=== PATIENT | female | born 1965 | race Caucasian/White ===

== ENCOUNTER 2018-04-21 16:55 | Outpatient (REF) | payer BC, SELFPAY ==
[2018-04-21 21:20] LABS: Abs Immature Grans 0.02 k/cumm (0.0-0.09); Absolute Basophil Count 0.06 k/cumm (0.0-0.2); Absolute Eosinophil Count 0.15 k/cumm (0.0-0.7); Absolute Lymphocyte Count 2.97 k/cumm (1.2-3.4); Absolute Monocyte Count 0.92 k/cumm (0.11-0.7); Absolute Neutrophil Count 4.96 k/cumm (1.2-6.7); Basophils % 0.7; Eosinophils % 1.7; HCT 40.3 % (36.0-46.0); HGB 13.7 g/dL (12.0-15.5); Immature Grans % 0.2; Lymphocytes % 32.7; Mean Corpuscular Hemoglobin 31.1 pg (27.0-33.0); Mean Corpuscular Volume 91.6 fL (80-95); Monocytes % 10.1; Neutrophils % 54.6; Platelet Count 248 x1000/uL (130-400); RBC Distribution Width 13.7 % (11.7-14.6); White Blood Cell Count 9.08 k/cumm (4.4-10.8)
[2018-04-25 17:28] LABS: Bartonella Henselae IgG <1:128 titer (<1:128); Bartonella Henselae IgM <1:20 titer (<1:20); Bartonella Quintana IgG <1:128 titer (<1:128); Bartonella Quintana IgM <1:20 titer (<1:20)
== END 2018-04-21 17:15 ==
LOC: NCHCN 16:55
PROVIDERS: PCP Nurse Practitioner Family; Visit Provider Nurse Practitioner Family
DX: R59.0 Localized enlarged lymph nodes (principal)
CPT/HCPCS: 85025; 86611

== ENCOUNTER 2018-04-25 16:27 | Outpatient (REF) | payer BC, SELFPAY ==
--- NOTE | 2018-04-25 15:40 | PAPFT_PTH ---
PATIENT: Marya Escalera LOC: [facility] U#:[id number] AGE/SX: 53/F ROOM: RE04/25/[address]: Ibis Humphrey : 1965 BED: DIS: 04/25/2018 SPEC #: [id number] RECD: 04/26/18 12:50 STATUS: PEREZ REEffie #: [id number] SANDRA: 04/25/18 15:[address]: Ibis Humphrey DEPT: [facility] Cytology RECD BY: Carol Chun Tissues: 1 - CX/ENDOCX FOR PAP SMEARS Procedures: PAP THIN PREP/UVM Screening HPV DNA PROBE Comments: [id number]
== END 2018-04-25 16:47 ==
LOC: NCHCN 16:27
PROVIDERS: PCP Nurse Practitioner Family; Visit Provider Nurse Practitioner Family
DX: N89.8 Other specified noninflammatory disorders of vagina (principal); Z12.4 Encounter for screening for malignant neoplasm of cervix; Z11.51 Encounter for screening for human papillomavirus (HPV); Z00.00 Encounter for general adult medical examination without abnormal findings; Z01.419 Encounter for gynecological examination (general) (routine) without abnormal findings
CPT/HCPCS: 88142; 87086; 87480; 87510; 87624; 87660

== ENCOUNTER 2018-05-04 10:00 | Day surgery (SDC) | payer BC, SELFPAY ==
--- NOTE | 2018-05-04 07:09 | ROE_ITS ---
Date of service: 05/04/18 Time of Service: 12:10 Operative Note DATE OF PROCEDURE: 05/04/18 PRE-OP DIAGNOSIS: Inguinal Lymphadenopathy POST-OP DIAGNOSIS: same PROCEDURE: Excisional bx of inguinal lymph node and aerobic and anaerobic cultures SURGEON: Jazmin Iniguez ANESTHESIA: local (2% Lidocaine mixed with 0.5% Marcaine with epi) ESTIMATED BLOOD LOSS: 5 PATHOLOGY: other (lymph node, cultures) COMPLICATIONS: None Patient was transported to: same day Patient's condition: stable Indications: Mrs. Escalera is a pleasant 53 year old female with a history of cervical Cancer who has noted right sided lymphadenopathy in her groin. No infections that she is aware of. The area is tender top palpation. Risks, benefits, complications were reviewed with her and she wished to proceed. No guarantees were given or implied Findings: Several enlarged lymph nodes in the right inguinal area. 2 cm lymph node removed. There was also some white material around the lymph node as I was dissecting it. Question infection and therefore cultures were done Procedure Description: After informed consent was obtained patient was taken to the operating room placed in a supine position on the operating room table. Monitors were applied and a blood pressure was done. Her right groin was then prepped and draped in a sterile surgical fashion and a timeout was done. The patient's name, date of , procedure type and site, allergies to medications, DVT prophylaxis and antibiotic prophylaxis were reviewed. Next the local anesthetic was injected into the dermis and subcutaneous tissue around the palpable lymph node. Once the skin was numb a 2-1/2 cm incision was made. Dissection was done with cautery with a needle tip through the subcutaneous tissue until the lymph node was identified. Hemostats and cautery were then used to gently dissect around the lymph node. As I was dissecting with the hemo stat some white material was noted right next to the lymph node. I did not know if this was a pocket of infection or if this was coming from the lymph node itself so cultures were done. Both anaerobic and aerobic cultures. Once the lymph node was completely dissected it was removed and placed in formalin and sent to the pathologist. The wound was then irrigated. Small areas of bleeding was stopped using cautery. The subcutaneous tissue was then re-approximated with 3-0 Vicryl. The dermis was re-approximated with a running 4-0 Vicryl suture. The skin was then cleaned and dried and skin affix was applied. Sponge instrument and needle counts were correct at the end of the case. The patient tolerated the procedure well and she was taken to same day surgery in stable condition.
--- NOTE | 2018-05-04 07:09 | W.PM.DSUDISC ---
Discharge Plan Disposition Patient Disposition: HOME Condition: Good Discharge Details Reason For Visit: inguinal lymphadenopathy Attending Provider: Jazmin Iniguez Primary Care Provider: Ibis Humphrey Home Meds and New Rx's Prescriptions: New acetaminophen [Tylenol Arthritis Pain] 650 mg tablet extended release 650 mg PO Q6H PRN PRN (Reason: pain) Qty: 30 RF: 0 ibuprofen 600 mg tablet 600 mg PO QID PRN (Reason: pain) Qty: 30 RF: 0 Continued doxycycline hyclate 100 MG tablet 100 mg PO BID Qty: 28 RF: 0 Discharge Instructions Instructions: Care For Your Absorbable Stitches (DC) Additional Instructions: Activity at Home after surgery: 1. Make sure you walk outside at least 4 times per day 2. You should be able to climb a flight of stairs 3. No driving while in pain or taking pain medications 4. No strenuous activity for 2 weeks Diet, Nutrition, & wound healing: regular diet Pain Medications: 1. Alternate Tylenol 650 mg and Ibuprofen 600 mg every 3 hours 2. If a narcotic has been prescribed take as directed only for breakthrough pain For Constipation: 1. Take Milk of Magnesia or MiraLax as needed for constipation Other: 1. You may shower daily. Do not scrub the incisions 2. Do not soak the incisions for 1 week 3. You may alternate ice and heat as needed for pain and swelling Wound Care: 1. Keep the incisions clean and dry Please call our office if you develop: 1. Fevers >101.5 2. Nausea or Vomiting 3. Worsening pain 4. Redness and thick discharge from the wounds If after hours please call the Hospital at and ask to speak to the on-call surgeon Referrals: Jazmin Iniguez MD [ [facility] STAFF PHYSICIAN] - 05/17/18 1:45 pm Activity:: Activity as Tolerated Diet:: As Tolerated Discharge Orders Discharge Orders: Discharge Order (Routine); Ordered 05/04/18 Ordered By: Jazmin Iniguez DS: Diagnosis Discharge Diagnosis (1) Inguinal lymphadenopathy: Status: Acute
[2018-05-04 10:11] VITALS: BP 124/76; PULSE 65; RESP 16; TEMP 35.5; O2SAT 100
[2018-05-04] MEDS: Lactated Ringers 1,000 ML 80 ML IV (10:38)
[2018-05-04] MEDS: Lidocaine 2% Multi-Dose 50 ML VIAL (11:39)
--- NOTE | 2018-05-04 11:45 | LYM_PTH ---
PATIENT: Marya Escalera LOC: [facility] U#:[id number] AGE/SX: 53/F ROOM: RE05/04/[address]: Jazmin Iniguez MD : 1965 BED: DIS: 05/04/2018 SPEC #: [id number] RECD: 05/04/18 12:48 STATUS: PEREZ REQ #: [id number] SANDRA: 05/04/18 11:[address]: Jazmin Iniguez DEPT: Surgical Specimen RECD BY: Carol Chun ENTERED: 05/04/18 12:50 SP TYPE: LYM OTHR DR: Ibis Humphrey Tissues: 1 - LYMPH NODE BIOPSY Procedures: GROSS AND MICRO LEVEL 4 IMMUNOPEROXIDASE STAIN SPECIAL STAIN 1 Comments: [id number]
--- NOTE | 2018-05-07 15:01 | W.PM.PROGNOT ---
Date of Service Date of service: 05/07/18 Time of Service: 15:07 Assessment and Plan (1) Inguinal lymphadenopathy: Start date: 05/07/18 Start time: 15:10 Current visit: No Status: Acute sp lymph excision reviewed her op note, micro and path she is concerned about the wound and the cause of this i spoke to her in length about this and that we nnd to wait fo the final on the path i also made verena she had the corect expectations and that this wound could open up and drain sh understood and will fu on wednesday with theoffice (2) Lymph nodes enlarged: Current visit: No Status: Acute (3) S/P lymph node biopsy: Current visit: No Status: Acute Subjective Interval history since last seen: wound getting distend and firm, pt say it seem like it may drain Objective Objective Clinical Data: Vital Signs Temperature 35.5 C L 05/04/18 10:11 Pulse 65 05/04/18 10:11 Pulse Rhythm Regular 05/04/18 10:11 Respiratory Rate 16 05/04/18 10:11 Respiratory Depth Normal 05/04/18 10:11 Blood Pressure 124/76 05/04/18 10:11 Pulse Oximetry 100 05/04/18 10:11 Oxygen Delivery Method Room Air 05/04/18 10:11 Oxygen Flow Rate 0 05/04/18 10:11 Pain Level 0 05/04/18 10:11
[2018-05-24 10:11] LABS: Bartonella PCR Negative; Specimen source SEE COMMENTS
== END 2018-05-04 12:45 | disposition home or self-care (01) ==
LOC: SUR 10:00
PROVIDERS: PCP Nurse Practitioner Family; Visit Provider Surgery
PROC: (CPT 38500; principal; 2018-05-04 10:45)
DX: I88.8 Other nonspecific lymphadenitis (principal); Z85.41 Personal history of malignant neoplasm of cervix uteri
CPT/HCPCS: 38531; 87077; 88305; 99231; 87070; 87075; 87205; 87798; 88312; 88361; J0690

== ENCOUNTER 2018-09-16 07:27 | Outpatient (CLI) | payer BC, SELFPAY ==
[2018-09-16 08:32] LABS: Cholesterol 204 mg/dL (50-200); Glucose 91 mg/dL (70-100); HDL Cholesterol 90 mg/dL (40-60)
[2018-09-16 08:43] LABS: Triglyceride < 25 mg/dL (30-150)
[2018-09-16 08:56] LABS: LDL CHOLESTEROL 100 mg/dL (<100)
== END 2018-09-16 07:47 ==
PROVIDERS: PCP Nurse Practitioner Adult Health; Visit Provider Nurse Practitioner Family
DX: Z13.220 Encounter for screening for lipoid disorders (principal); Z13.1 Encounter for screening for diabetes mellitus
CPT/HCPCS: 36415; 80061; 82947; 83721

== ENCOUNTER 2018-10-07 01:20 | Outpatient (CLI) | payer BC, SELFPAY ==
--- NOTE | 2018-10-07 15:30 | DI.MAMMO_ITS ---
SYMPTOMS/DIAGNOSIS: SCREENING, Z12.31 MAMMOGRAM: Mammograms were interpreted according to the usual protocol including computer analysis with CAD system, tomosynthesis and C view imaging. The breasts are heterogeneously dense. No dominant mass or clumped microcalcification is identified in either breast. Current examination is compared with the previous examinations including August 2017 and there is a question of increased prominence of retroareolar soft tissue seen on MLO view of the left breast, new mass not excluded. Additional mammographic views are requested to include MLO and CC spot compression views of the retroareolar portion of the left breast. Breast ultrasound recommended as well. CONCLUSION: Additional mammographic views of the left breast requested as described above, along with left breast ultrasound. Category 0, breast density category C. MQSA ASSESSMENT OF FINDINGS: Incomplete: Needs additional imaging evaluation. Category 0. Patient will receive a letter notifying them of these results. Bi-RADS category C. The breasts are heterogeneously dense, which may obscure small masses.
== END 2018-10-07 01:40 ==
PROVIDERS: PCP Nurse Practitioner Adult Health; Visit Provider Nurse Practitioner Family
DX: Z12.31 Encounter for screening mammogram for malignant neoplasm of breast (principal); R92.8 Other abnormal and inconclusive findings on diagnostic imaging of breast
CPT/HCPCS: 77063; 77067

== ENCOUNTER 2018-10-11 00:58 | Outpatient (CLI) | payer BC, SELFPAY ==
--- NOTE | 2018-10-11 14:03 | DI.COMBO_ITS ---
SYMPTOMS/DIAGNOSIS: F/U ABNORMAL MAMMO, ? INCREASED PROMINENCE OF RETROAREOLAR SOFT TISSUE SEEN OF LT BREAST, NEW MASS NOT EXCLUDED; RIGHT BREAST LUMP, N63.10 ADDITIONAL VIEW OF THE LEFT BREAST AND LEFT BREAST ULTRASOUND: Additional images are interpreted according to the usual protocol including tomosynthesis and 2D imaging. Comparison is made with mammograms from 2010 through 2018. An MLO spot compression view with tomography was performed for a questioned area of nodularity. There has been no change when compared with previous exams. Dense breast tissue is seen. Left breast ultrasound shows no evidence of a cyst or mass. There is dense tissue seen in the upper outer quadrant. IMPRESSION: Category 1, negative mammogram and left breast ultrasound. The mammographic findings are consistent with islands of dense breast tissue. Yearly screening mammography is recommended. ULTRASOUND OF THE RIGHT AXILLA: There is a 2.9 x 0.5 x 2.2 cm smoothly marginated, mildly hypoechoic nodule in the right axilla. The findings are consistent with a lipoma. An additional lipoma is seen measuring 4.3 x 0.8 x 3.2 cm in the mid to superior axilla. No enlarged lymph nodes are identified. 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 SA ASSESSMENT OF FINDINGS: Negative. Category 1. Patient will receive a letter notifying them of these results. Bi-RADS category C. The breasts are heterogeneously dense, which may obscure small masses.
== END 2018-10-11 01:18 ==
PROVIDERS: PCP Nurse Practitioner Adult Health; Visit Provider Nurse Practitioner Family
DX: Z12.31 Encounter for screening mammogram for malignant neoplasm of breast (principal); R92.8 Other abnormal and inconclusive findings on diagnostic imaging of breast; D17.22 Benign lipomatous neoplasm of skin and subcutaneous tissue of left arm; N60.82 Other benign mammary dysplasias of left breast
CPT/HCPCS: 76642; 77063; 77067

== ENCOUNTER 2019-09-18 11:18 | Outpatient (REF) | payer BC, SELFPAY ==
--- NOTE | 2019-09-15 | PAPFT_PTH ---
PATIENT: Marya Escalera LOC: [facility] U#:[id number] AGE/SX: 54/F ROOM: RE09/18/[address]: GINNY Morel : 1965 BED: DIS: 09/18/2019 SPEC #: [id number] RECD: 09/18/19 12:33 STATUS: PEREZ REEffie #: [id number] ASNDRA: 09/15/19 00:[address]: Ashly Varner DEPT: [facility] Cytology RECD BY: Carol Chun ENTERED: 09/18/19 12:33 SP TYPE: PAPFT DELMY DR: Ana Rosa Elizondo APRN Tissues: 1 - CX/ENDOCX FOR PAP SMEARS Procedures: PAP THIN PREP/UVM Screening HPV DNA PROBE Comments: [id number]
== END 2019-09-18 11:38 ==
LOC: LBN 11:18
PROVIDERS: PCP Nurse Practitioner Adult Health; Visit Provider Nurse Practitioner Family
DX: Z12.4 Encounter for screening for malignant neoplasm of cervix (principal); Z11.51 Encounter for screening for human papillomavirus (HPV)
CPT/HCPCS: 88142; 87624

== ENCOUNTER 2019-10-13 00:30 | Outpatient (CLI) | payer BC, SELFPAY ==
--- NOTE | 2019-10-13 12:09 | DI.MAMMO_ITS ---
EXAM: MG MAMMO SCREENING CLINICAL HISTORY: screening TECHNIQUE: Bilateral full field digital CC and MLO mammographic images were obtained with 3D tomosyn thesis and utilizing computer aided detection (CAD). COMPARISON: Available for comparison. FINDINGS: Masses/Architectural Distortion: None seen. Microcalcifications: No suspicious pleomorphic-type are seen. Skin Thickening/Nipple Retraction: None. IMPRESSION: 1. No significant interval change with no specific features of malignancy noted. 2. Unless there is more urgent need, screening mammography is recommended, as per [employer] guidelines. BI-RADS Category 1 - Negative Breast Density - Category C - Heterogeneously dense The mammogram demonstrates the patient's breast tissue is dense. Dense breast tissue is very common a nd is not abnormal but dense breast tissue can make it harder to find cancer on a mammogram. Also, de nse breast tissue may increase their breast cancer risk. This information about the result of the [facility] mogram report was provided to the patient to raise their awareness. Use this report when you speak wi th the patient about their risks for breast cancer, which includes their family history. At that time , you may recommend for more screening tests (Ultrasound or MRI) as they might be useful based on the ir risk. A negative radiographic report should not delay biopsy if a dominant or clinically suspicious mass is present. Up to ten percent of cancers are not identified on mammography. A negative report may reinforce clinical impression. Adenosis and dense breasts may obscure an underlying neoplasm. False positive reports average 6 to 10%. Patient will receive a letter notifying them of these results.
== END 2019-10-13 00:50 ==
PROVIDERS: PCP Nurse Practitioner Adult Health; Visit Provider Nurse Practitioner Family
DX: Z12.31 Encounter for screening mammogram for malignant neoplasm of breast (principal)
CPT/HCPCS: 77063; 77067

== ENCOUNTER 2020-11-06 18:24 | Outpatient (REF) | payer BC, SELFPAY ==
--- NOTE | 2020-11-06 18:30 | PAPFT_PTH ---
PATIENT: Marya Escalera LOC: [facility] U#:[id number] AGE/SX: 55/F ROOM: RE11/06/[address]: Ana Rosa Elizondo APRN : 1965 BED: DIS: 11/06/2020 SPEC #: [id number] RECD: 11/07/20 12:58 STATUS: PEREZ REQ #: [id number] SANDRA: 11/06/20 18:[address]: Ana Rosa Elizondo DEPT: [facility] Cytology RECD BY: Carol Chun Tissues: 1 - CX/ENDOCX FOR PAP SMEARS Procedures: PAP THIN PREP/UVM Screening HPV DNA PROBE Comments: [id number]
== END 2020-11-06 18:25 | disposition home or self-care (01) ==
LOC: LBN 18:24
PROVIDERS: PCP Nurse Practitioner Adult Health; Visit Provider Nurse Practitioner Adult Health
DX: Z12.4 Encounter for screening for malignant neoplasm of cervix (principal); Z11.51 Encounter for screening for human papillomavirus (HPV); Z87.410 Personal history of cervical dysplasia
CPT/HCPCS: 88142; 87624

== ENCOUNTER 2020-12-05 01:50 | Outpatient (CLI) | payer BC, SELFPAY ==
--- NOTE | 2020-12-05 08:24 | DI.MAMMO_ITS ---
Exam(s) MAMMO SCREENING EXAM: MAMMO SCREENING CLINICAL HISTORY: screening, Z12.39. TECHNIQUE: Bilateral full field digital CC and MLO mammographic images were obtained with 3D tomosyn thesis and utilizing computer aided detection (CAD). COMPARISON: Prior mammograms dating back to 2011, the most recent being October 2019.. FINDINGS: Fibroglandular tissue is again noted be moderately dense, this somewhat decreasing the sensitivity th e mammogram for finding hidden underlying lesions. There are no CAD designations. There are no new obvious masses nor malignant appearing microcalcification groups. There is no significant architectural distortion nor skin thickening-retraction. IMPRESSION: Moderately dense fibroglandular tissue. No obvious radiographic evidence of malignancy nor significa nt change compared to prior studies listed above. BI-RADS Category 1 - Negative Breast Density - Category C - Heterogeneously dense Breast density Category C or D implies that the patient has dense breast tissue. Dense breast tissue can make it harder to find cancer on a mammogram. Dense breast tissue is also associated with an incr eased risk of breast cancer. This information about the result of the mammogram report was provided to the patient to raise their awareness. Use this report when you speak with the patient about their risks for breast cancer, which includes their family history. At that time, you may recommend additional screening tests (Ultrasoun d or MRI) as these tests may add significant information. A negative radiographic report should not delay biopsy if a dominant or clinically suspicious mass is present. Up to ten percent of cancers are not identified on mammography. A negative report may reinforce clinical impression. Adenosis and dense breasts may obscure an underlying neoplasm. False positive reports average 6 to 10%. Patient will receive a letter notifying them of these results.
== END 2020-12-05 02:10 ==
PROVIDERS: PCP Nurse Practitioner Adult Health; Visit Provider Nurse Practitioner Adult Health
DX: Z12.31 Encounter for screening mammogram for malignant neoplasm of breast (principal)
CPT/HCPCS: 77063; 77067

== ENCOUNTER 2020-12-05 03:40 | Outpatient (CLI) | payer BC, SELFPAY ==
[2020-12-05 09:30] LABS: Anion Gap 11.7 mmol/L (3-11); BUN 21 mg/dL (7-18); CO2 26.3 mmol/L (21.0-32.0); CREATININE 0.8 mg/dL (0.55-1.02); Calcium 9.3 mg/dL (8.5-10.1); Calculated LDL 134 mg/dL (<100); Chloride 105 mmol/L (98-107); Cholesterol 234 mg/dL (<200); Glucose 83 mg/dL (74-106); HDL Cholesterol 94 mg/dL (40-60); Potassium 4.5 mmol/L (3.5-5.1); Sodium 143 mmol/L (136-145); Triglyceride 34 mg/dL (<150)
[2020-12-06 11:32] LABS: Hepatitis C Ab w Rflx HCV PCR Negative (Negative)
== END 2020-12-05 03:41 | disposition home or self-care (01) ==
LOC: LBO 03:40
PROVIDERS: PCP Nurse Practitioner Adult Health; Visit Provider Nurse Practitioner Adult Health
DX: Z13.220 Encounter for screening for lipoid disorders (principal); Z13.1 Encounter for screening for diabetes mellitus; Z11.59 Encounter for screening for other viral diseases
CPT/HCPCS: 36415; 80048; 80061; 86803; 87389

== ENCOUNTER 2021-07-17 21:37 | Emergency (ER) | payer BC, SELFPAY ==
[2021-07-17 21:41] VITALS: BP 132/87; PULSE 70; RESP 18; TEMP 36.8; O2SAT 100
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
[2021-07-17 22:34] LABS: Abs Immature Grans 0.01 10^3/uL (0.0-0.06); Absolute Basophil Count 0.09 10^3/uL (0.0-0.2); Absolute Eosinophil Count 0.26 10^3/uL (0.0-0.7); Absolute Lymphocyte Count 3.13 10^3/uL (1.2-3.4); Absolute Monocyte Count 1.05 10^3/uL (0.1-0.8); Absolute Neutrophil Count 5.03 10^3/uL (1.2-6.7); Basophils % 0.9; Eosinophils % 2.7; HCT 38.8 % (36.0-46.0); HGB 12.5 g/dL (11.2-15.7); Immature Grans % 0.1; Lymphocytes % 32.7; MCH 29.8 pg (27.0-33.0); MCHC 32.2 % (32.0-36.0); MCV 92.6 fL (80-95); MPV 10.2 fL (8.0-11.0); Neutrophils % 52.6; Nucleated RBC 0 %; Platelet Count 221 10^3/uL (130-400); RBC 4.19 10^6/uL (3.93-5.22); RDW 13.4 % (11.7-14.6); WBC 9.57 10^3/uL (4.4-10.8)
[2021-07-17 22:46] LABS: INR 0.9 (0.9-1.1); PTT Activated 21.1 sec (21.0-27.5); Prothrombin Time 9.3 sec (9.3-11.0)
[2021-07-17 22:48] LABS: ALT 25 U/L (14-59); AST 18 U/L (15-37); Albumin 4.1 g/dL (3.4-5.0); Alkaline Phosphatase 47 U/L (46-116); Anion Gap 7.2 mmol/L (3-11); BUN 20 mg/dL (7-18); Bilirubin, Total 0.3 mg/dL (0.2-1.0); CO2 27.8 mmol/L (21.0-32.0); Chloride 105 mmol/L (98-107); Estimated GFR 57.35 (mL/min/1.73m2); Glucose 112 mg/dL (74-106); Lipase 157 U/L (73-393); Magnesium 2.1 mg/dL (1.8-2.4); Potassium 4.1 mmol/L (3.5-5.1); Sodium 140 mmol/L (136-145); Total Protein 7.1 g/dL (6.4-8.2); Troponin I < 50 ng/L (<or=60)
[2021-07-17] MEDS: Omnipaque 350 MG/ML 100 ML BTL IJ (23:04)
[2021-07-17 23:08] LABS: Bilirubin Negative (Negative); Blood Trace-intact (Negative); Clarity Clear (Clear); Glucose Negative (Negative); Ketones Negative (Negative); Leukocyte Esterase Negative (Negative); Nitrite Negative (Negative); Specific Gravity 1.015 (1.005-1.025); Urobilinogen 0.2 EU/dL (Up TO 0.2)
[2021-07-17 23:24] LABS: Bacteria Rare HPF (Negative); C & S Indicated? No; Crystals Negative HPF (Negative); Epithelial Cells Rare HPF (Negative); Mucus Negative (Negative); RBC 0-2 HPF (0-2); WBC 0-2 HPF (0-5)
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
[2021-07-18 00:13] VITALS: BP 107/59; PULSE 57; RESP 15; TEMP 36.8; O2SAT 98
== END 2021-07-18 00:31 | disposition home or self-care (01) ==
PROVIDERS: Physician Assistant; Emergency Provider Emergency Medicine; PCP Nurse Practitioner Adult Health
DX: S27.0XXA Traumatic pneumothorax, initial encounter (principal); S22.32XA Fracture of one rib, left side, initial encounter for closed fracture; V19.9XXA Pedal cyclist (driver) (passenger) injured in unspecified traffic accident, initial encounter; R31.9 Hematuria, unspecified
CPT/HCPCS: 74177; 80053; 83690; 86850; 86900; 86901; 93005; 99285; 71260; 81003; 81015; 83735; 84484; 85025; 85610; 85730; 93010; 99284; J3490

== ENCOUNTER → 2021-07-21 14:04 | Outpatient (CLI) | payer BC, SELFPAY ==
--- NOTE | 2021-07-21 12:49 | DI.RAD_ITS ---
Exam(s) XR CHEST 2V PA LATERAL EXAM: XR CHEST 2V PA LATERAL CLINICAL HISTORY: J93.9 f/u pneumothorax/rib fx S22.32XA TECHNIQUE: 2D digital imaging was performed. COMPARISON: CT CT CHEST/ABD/PEL W from 07/17/2021 FINDINGS: MEDIASTINUM: Normal. HEART: Normal. PULMONARY VASCULATURE: Normal. LUNGS: Hyperinflated. Linear atelectasis or scarring at the left lung base. PLEURAL SPACE: No pleural effusion or pneumothorax. BONE:Unremarkable for age. Left lateral 7th rib fracture. IMPRESSION: No visible pneumothorax. DATA REPOSITORY: RADIATION DOSE DELIVERED:
== END ==
PROVIDERS: PCP Nurse Practitioner Adult Health; Visit Provider Surgery
DX: J93.9 Pneumothorax, unspecified (principal); S22.32XD Fracture of one rib, left side, subsequent encounter for fracture with routine healing; J98.4 Other disorders of lung
CPT/HCPCS: 71046

== ENCOUNTER 2021-11-28 11:30 | Outpatient (REF) | payer BC, SELFPAY ==
--- NOTE | 2021-11-28 11:00 | PAPFT_PTH ---
PATIENT: Marya Escalera LOC: [facility] U#:[id number] AGE/SX: 56/F ROOM: RE11/28/[address]: Ana Rosa Elizondo APRN : 1965 BED: DIS: 11/28/2021 SPEC #: [id number] RECD: 11/28/21 17:28 STATUS: PEREZ REEffie #: [id number] SANDRA: 11/28/21 11:[address]: Ana Rosa Elizondo DEPT: [facility] Cytology RECD BY: Carlo Chun Tissues: 1 - CX/ENDOCX FOR PAP SMEARS Procedures: PAP THIN PREP/UVM Screening HPV DNA PROBE Comments: [id number]
== END 2021-11-28 11:31 | disposition home or self-care (01) ==
LOC: LBN 11:30
PROVIDERS: PCP Nurse Practitioner Adult Health; Visit Provider Nurse Practitioner Adult Health
DX: Z12.4 Encounter for screening for malignant neoplasm of cervix (principal); Z11.51 Encounter for screening for human papillomavirus (HPV); Z85.41 Personal history of malignant neoplasm of cervix uteri
CPT/HCPCS: 88142; 87624

== ENCOUNTER 2021-12-12 02:16 | Outpatient (CLI) | payer BC, SELFPAY ==
[2021-12-12 07:53] LABS: BUN 14 mg/dL (7-18); CREATININE 0.9 mg/dL (0.55-1.02); Calcium 9.2 mg/dL (8.5-10.1); Calculated LDL 122 mg/dL (<100); Chloride 106 mmol/L (98-107); Cholesterol 208 mg/dL (<200); Estimated GFR 75.03 (mL/min/1.73m2); Glucose 96 mg/dL (74-106); HDL Cholesterol 78 mg/dL (40-60); Potassium 4.4 mmol/L (3.5-5.1); Sodium 143 mmol/L (136-145); Triglyceride 44 mg/dL (<150)
== END 2021-12-12 02:17 | disposition home or self-care (01) ==
PROVIDERS: PCP Nurse Practitioner Adult Health; Visit Provider Nurse Practitioner Adult Health
DX: R79.9 Abnormal finding of blood chemistry, unspecified (principal); Z13.1 Encounter for screening for diabetes mellitus; Z13.220 Encounter for screening for lipoid disorders
CPT/HCPCS: 36415; 80048; 80061

== ENCOUNTER → 2021-12-24 00:58 | Outpatient (CLI) | payer BC, SELFPAY ==
--- NOTE | 2021-12-24 16:00 | DI.MAMMO_ITS ---
Exam(s) MAMMO SCREENING EXAM: MAMMO SCREENING CLINICAL HISTORY: screening,Z12.39. TECHNIQUE: Bilateral full field digital CC and MLO mammographic images were obtained with 3D tomosyn thesis and utilizing computer aided detection (CAD). COMPARISON: Prior mammograms were reviewed, the most recent being November 2020. FINDINGS: Fibroglandular tissue pattern is again noted be moderately dense. There are no CAD designations. No new significant radiograph findings right breast. In the left breast on CC view an asymmetric density posterior Ulysses medially which is unchanged from p rior studies. There is no new significant architectural distortion nor skin thickening-retraction. IMPRESSION: Dense bilateral fibroglandular tissue. No obvious radiographic evidence of malignancy nor significan t change compared to prior mammograms listed above. BI-RADS Category 2 - Benign Findings Breast Density - Category C - Heterogeneously dense Breast density Category C or D implies that the patient has dense breast tissue. Dense breast tissue can make it harder to find cancer on a mammogram. Dense breast tissue is also associated with an incr eased risk of breast cancer. This information about the result of the mammogram report was provided to the patient to raise their awareness. Use this report when you speak with the patient about their risks for breast cancer, which includes their family history. At that time, you may recommend additional screening tests (Ultrasoun d or MRI) as these tests may add significant information. A negative radiographic report should not delay biopsy if a dominant or clinically suspicious mass is present. Up to ten percent of cancers are not identified on mammography. A negative report may reinforce clinical impression. Adenosis and dense breasts may obscure an underlying neoplasm. False positive reports average 6 to 10%. Patient will receive a letter notifying them of these results.
== END ==
PROVIDERS: PCP Nurse Practitioner Adult Health; Visit Provider Nurse Practitioner Adult Health
DX: Z12.31 Encounter for screening mammogram for malignant neoplasm of breast (principal); N60.82 Other benign mammary dysplasias of left breast
CPT/HCPCS: 77063; 77067

== ENCOUNTER 2022-12-09 16:51 | Outpatient (REF) | payer BC, SELFPAY ==
--- NOTE | 2022-12-09 15:45 | PAPFT_PTH ---
PATIENT: Marya Escalera LOC: [facility] U#:[id number] AGE/SX: 57/F ROOM: RE12/09/[address]: Ana Rosa Elizondo APRN : 1965 BED: DIS: 12/09/2022 SPEC #: [id number] RECD: 12/10/22 13:00 STATUS: PEREZ REEffie #: [id number] SANDRA: 12/09/22 15:[address]: Ana Rosa Elizondo DEPT: [facility] Cytology RECD BY: Carol Chun Tissues: 1 - CX/ENDOCX FOR PAP SMEARS Procedures: PAP THIN PREP/UVM Screening HPV DNA PROBE Comments: [id number]
== END 2022-12-09 16:52 | disposition home or self-care (01) ==
LOC: LBN 16:51
PROVIDERS: PCP Nurse Practitioner Adult Health; Visit Provider Nurse Practitioner Adult Health
DX: Z12.4 Encounter for screening for malignant neoplasm of cervix (principal); Z11.51 Encounter for screening for human papillomavirus (HPV)
CPT/HCPCS: 88142; 87624

== ENCOUNTER → 2022-12-29 02:46 | Outpatient (CLI) | payer BC, SELFPAY ==
--- NOTE | 2022-12-29 12:34 | DI.MAMMO_ITS ---
Exam(s) MAMMO SCREENING EXAM: MAMMO SCREENING CLINICAL HISTORY: screening,z12.39 TECHNIQUE: Bilateral full field digital CC and MLO mammographic images were obtained with 3D tomosyn thesis and utilizing computer aided detection (CAD). COMPARISON: Available for comparison. FINDINGS: Masses/Architectural Distortion: None seen. Microcalcifications: No suspicious pleomorphic-type are seen. Skin Thickening/Nipple Retraction: None. IMPRESSION: 1. No significant interval change with no specific features of malignancy noted. 2. Unless there is more urgent need, screening mammography is recommended, as per [employer] guidelines. BI-RADS Category 1 - Negative Breast Density - Category C - Heterogeneously dense Breast density category C or D implies that the patient has dense breast tissue. Dense breast tissue is very common and is not abnormal but dense breast tissue can make it harder to find cancer on a ma mmogram. Also, dense breast tissue may increase their breast cancer risk. This information about the result of the mammogram report was provided to the patient to raise their awareness. Use this report when you speak with the patient about their risks for breast cancer, which includes their family hist ory. At that time, you may recommend for more screening tests (Ultrasound or MRI) as they might be us eful based on their risk. A negative radiographic report should not delay biopsy if a dominant or clinically suspicious mass is present. Up to ten percent of cancers are not identified on mammography. A negative report may reinforce clinical impression. Adenosis and dense breasts may obscure an underlying neoplasm. False positive reports average 6 to 10%. Patient will receive a letter notifying them of these results.
== END ==
PROVIDERS: PCP Nurse Practitioner Adult Health; Visit Provider Nurse Practitioner Adult Health
DX: Z12.31 Encounter for screening mammogram for malignant neoplasm of breast (principal)
CPT/HCPCS: 77063; 77067

== ENCOUNTER 2023-09-07 15:10 | Outpatient (REF) | payer BC, SELFPAY ==
--- NOTE | 2023-09-07 14:45 | CER_PTH ---
PATIENT: Marya Escalera LOC: [facility] U#:[id number] AGE/SX: 58/F ROOM: RE09/07/[address]: Aleta White MD : 1965 BED: DIS: 09/07/2023 SPEC #: [id number] RECD: 09/07/23 16:42 STATUS: PEREZ PARMAR #: [id number] SANDRA: 09/07/23 14:[address]: Aleta White DEPT: Surgical [facility] RECD BY: Carol Chun ENTERED: 09/07/23 16:44 SP TYPE: CER DELMY DR: Ana Rosa Elizondo APRN Tissues: 1 - CERVICAL BIOPSY Procedures: GROSS AND MICRO LEVEL 4 Comments:
== END 2023-09-07 15:11 | disposition home or self-care (01) ==
LOC: LBN 15:10
PROVIDERS: PCP Nurse Practitioner Adult Health; Visit Provider Obstetrics & Gynecology
DX: N93.9 Abnormal uterine and vaginal bleeding, unspecified (principal); N84.1 Polyp of cervix uteri
CPT/HCPCS: 88305

== ENCOUNTER 2023-12-09 04:01 | Outpatient (CLI) | payer BC, SELFPAY ==
[2023-12-09 09:34] LABS: BUN 13 mg/dL (7-18); Calcium 9.4 mg/dL (8.5-10.1); Calculated LDL 112 mg/dL (<100); Chloride 105 mmol/L (98-107); Cholesterol 217 mg/dL (<200); Glucose 88 mg/dL (74-106); HDL Cholesterol 100 mg/dL (40-60); Potassium 3.8 mmol/L (3.5-5.1); Sodium 139 mmol/L (136-145); Triglyceride 27 mg/dL (<150)
== END 2023-12-09 04:02 | disposition home or self-care (01) ==
LOC: LBO 04:03
PROVIDERS: PCP Nurse Practitioner Adult Health; Visit Provider Nurse Practitioner Adult Health
DX: Z13.1 Encounter for screening for diabetes mellitus (principal); Z13.220 Encounter for screening for lipoid disorders
CPT/HCPCS: 36415; 80048; 80061

== ENCOUNTER 2023-12-16 12:53 | Outpatient (REF) | payer BC, SELFPAY ==
--- NOTE | 2023-12-16 14:15 | PAPFT_PTH ---
PATIENT: Marya Escalera LOC: [facility] U#:[id number] AGE/SX: 58/F ROOM: RE12/16/[address]: Ana Rosa Elizondo APRN : 1965 BED: DIS: 12/16/2023 SPEC #: [id number] RECD: 12/17/23 13:29 STATUS: PEREZ REEffie #: [id number] SANDRA: 12/16/23 14:[address]: Ana Rosa Elizondo DEPT: [facility] Cytology RECD BY: Carol Chun Tissues: 1 - CX/ENDOCX FOR PAP SMEARS Procedures: PAP THIN PREP/UVM Screening HPV DNA PROBE Comments: [id number] (HPV 16 & 18/45)
== END 2023-12-16 12:54 | disposition home or self-care (01) ==
LOC: NCHCN 12:53
PROVIDERS: PCP Nurse Practitioner Adult Health; Visit Provider Nurse Practitioner Adult Health
DX: Z11.51 Encounter for screening for human papillomavirus (HPV) (principal); Z01.419 Encounter for gynecological examination (general) (routine) without abnormal findings; Z85.41 Personal history of malignant neoplasm of cervix uteri
CPT/HCPCS: 88142; 87624

== ENCOUNTER 2023-12-31 00:16 | Outpatient (CLI) | payer BC, SELFPAY ==
--- NOTE | 2023-12-31 07:30 | DI.MAMMO_ITS ---
Exam(s) MAMMO SCREENING EXAM: MAMMO SCREENING CLINICAL HISTORY: screening,Z12.39 TECHNIQUE: Mammograms were interpreted according to the usual protocol including computer analysis w [employer] CAD system, tomosynthesis and C-view imaging. COMPARISON: 2014 through 2022 FINDINGS: The breasts are composed of heterogeneously dense fibroglandular densities, Breast Density category C . No suspicious masses or suspicious microcalcifications are seen. No skin thickening or abnormal axillary lymph nodes are seen. There has been no significant change from prior exams. IMPRESSION: BI-RADS Category 1, Negative mammogram. Yearly screening mammography is recommended. Breast Density Category C, heterogeneously Dense. The mammogram demonstrates the patient's breast tissue is dense. Dense breast tissue is very common a nd is not abnormal but dense breast tissue can make it harder to find cancer on a mammogram. Also, de nse breast tissue may increase breast cancer risk. This information about the result of the mammogram report was provided to the patient to raise their awareness. Use this report when you speak with the patient about their risks for breast cancer, which includes their family history. At that time, you may recommend additional screening tests (Ultrasound or MRI) as they might be useful based on their r isk. A negative radiographic report should not delay biopsy if a dominant or clinically suspicious mass is present. Up to ten percent of cancers are not identified on mammography. A negative report may reinforce clinical impression. Adenosis and dense breasts may obscure an underlying neoplasm. False positive reports average 6 to 10%.
== END 2023-12-31 00:36 ==
LOC: DI 00:16
PROVIDERS: PCP Nurse Practitioner Adult Health; Visit Provider Nurse Practitioner Adult Health
DX: Z12.31 Encounter for screening mammogram for malignant neoplasm of breast (principal)
CPT/HCPCS: 77063; 77067

== ENCOUNTER 2024-02-11 16:48 | Outpatient (REF) | payer BC, SELFPAY | END 2024-02-11 16:49 | disposition home or self-care (01) | LOC: LBN 16:48 | PROVIDERS: PCP Nurse Practitioner Adult Health; Visit Provider Family Medicine | DX: N89.8 Other specified noninflammatory disorders of vagina (principal); B96.89 Other specified bacterial agents as the cause of diseases classified elsewhere; N76.0 Acute vaginitis | CPT/HCPCS: 87086 ==

== ENCOUNTER 2025-01-03 03:27 | Outpatient (CLI) | payer BC, SELFPAY ==
--- NOTE | 2025-01-03 05:30 | DI.MAMMO_ITS ---
Exam(s) MAMMO SCREENING EXAM: MAMMO SCREENING CLINICAL HISTORY: screening,z12.39 TECHNIQUE: Bilateral full field digital CC and MLO mammographic images were obtained with 3D tomosynthesis and utilizing computer aided detection (CAD). COMPARISON: Comparison is made with prior examinations. FINDINGS: Masses/Architectural Distortion: No suspicious masses or areas of architectural distortion are present. Microcalcifications: No suspicious pleomorphic-type are seen. Skin Thickening/Nipple Retraction: None. IMPRESSION: 1. No significant interval change with no specific features of malignancy noted. 2. Unless there is more urgent need, screening mammography is recommended, as per [employer] guidelines. BI-RADS Category 1 - Negative Breast Density - Category C - The breast are heterogeneously dense, which may obscure small masses. Breast density Category C or D implies that the patient has dense breast tissue. Dense breast tissue can make it harder to find cancer on a mammogram. Dense breast tissue is also associated with an increased risk of breast cancer. This information about the result of the mammogram report was provided to the patient to raise their awareness. Use this report when you speak with the patient about their risks for breast cancer, which includes their family history. At that time, you may recommend additional screening tests (Ultrasound or MRI) as these tests may add significant information. A negative radiographic report should not delay biopsy if a dominant or clinically suspicious mass is present. Up to ten percent of cancers are not identified on mammography. A negative report may reinforce clinical impression. Adenosis and dense breasts may obscure an underlying neoplasm. False positive reports average 6 to 10%. Patient will receive a letter notifying them of these results.
== END 2025-01-03 03:47 ==
LOC: DI 03:27
PROVIDERS: PCP Nurse Practitioner Adult Health; Visit Provider Nurse Practitioner Adult Health
DX: Z12.31 Encounter for screening mammogram for malignant neoplasm of breast (principal)
CPT/HCPCS: 77063; 77067

== ENCOUNTER 2025-01-03 04:12 | Outpatient (CLI) | payer BC, SELFPAY ==
[2025-01-03 08:58] LABS: ALT 19 U/L (14-59); AST 14 U/L (15-37); Albumin 3.8 g/dL (3.4-5.0); Alkaline Phosphatase 36 U/L (46-116); Anion Gap 7.8 mmol/L (3-11); BUN 17 mg/dL (7-18); Bilirubin, Total 0.6 mg/dL (0.2-1.0); CO2 29.2 mmol/L (21.0-32.0); Calcium 9.6 mg/dL (8.5-10.1); Calculated LDL 132 mg/dL (<100); Chloride 104 mmol/L (98-107); Cholesterol 223 mg/dL (<200); Estimated GFR 84.82 (mL/min/1.73m2); Glucose 88 mg/dL (74-106); HDL Cholesterol 81 mg/dL (>or=50); Potassium 4.4 mmol/L (3.5-5.1); Sodium 141 mmol/L (136-145); Total Protein 6.7 g/dL (6.4-8.2); Triglyceride 50 mg/dL (<150)
== END 2025-01-03 04:13 | disposition home or self-care (01) ==
LOC: LBO 04:12
PROVIDERS: PCP Nurse Practitioner Adult Health; Visit Provider Nurse Practitioner Adult Health
DX: Z13.1 Encounter for screening for diabetes mellitus (principal); Z13.220 Encounter for screening for lipoid disorders
CPT/HCPCS: 36415; 80053; 80061